=== PATIENT | female | born 2000 | race Caucasian/White ===

== ENCOUNTER 2025-01-22 14:10 | Emergency (ER) | payer OTHER ==
--- OUTSIDE RECORDS SUMMARY | 2025-01-22 14:13 | XMS REPORT | Continuity of Care Document ---
Author Name Unknown Address [address] [facility] [address] [place] [address] [facility] Address [address] [facility] [address] [place] [address] Care Team Providers Care Blade Operator Name Role Phone ANDREA CARROLL Attending Clinician Unavailable LUIS ENRIQUE TODD Attending Clinician Unavailab DENIS Adrian V. Attending Clinician Unavailable DENIS ROJAS V. Admitting Clinician Unavailable Encounters Start Date/Time End Date/Time Encounter Type Admission Type Attending Clinicians Care Facility Care Department Encounter ID Source 2022-08-01 09:00:00 Inpatient ANDREA ROLDAN [facility] [id number] [facility] 2019-05-13 09:45:00 2019-05-13 09:45:00 Outpatient LUIS ENRIQUE GRIER [facility] [id number] [facility] 2000 11:27:00 2000 11:27:00 Outpatient DENIS EM [facility] [id number] [facility] 2000 13:28:00 2000 13:43:00 Inpatient DENIS EM [facility] [id number] [facility] 2000 17:31:00 2000 11:59:00 Inpatient DENIS ROCK ELLIS [facility] [id number] [facility]
--- NOTE | 2025-01-22 14:17 | EDPHYS ---
Physician Documentation [facility] Name: Kim Newman Age: 24 yrs Sex: Female : 2000 Arrival Date: 01/22/2025 Time: 14:10 Bed Treatment Private MD: ED Physician Melvin Schaffer HPI: 01/22 20:24 This 24 yrs old Female presents to ER via Ambulatory with complaints of dr5 Abdominal Pain. 20:26 Patient is a 24 old female with no past medical history coming in with lower abdominal dr5 cramping has been going on for the past 2 weeks. Patient reports that she had mild spotting that started today. Patient is G1, P0. Patient had quant hCG completed yesterday and it was 350. Patient would like to have repeat hCG today as she has appointment tomorrow with her FRAME TABLE OPERATOR HELPER for further management.. FRAME TABLE OPERATOR HELPER: 14:27 Verified me1 Historical: - Allergies: 14:18 No Known Allergies; ll1 - PMHx: 14:18 None; ll1 - PSHx: 14:18 None; ll1 - Immunization history:: Adult Immunizations up to date. - Infectious Disease History:: Denies. - Social history:: Smoking status: Patient denies any tobacco usage or history of. ROS: 20:26 Constitutional: as per hpi dr5 Exam: 20:26 Constitutional: This is a well developed, well nourished patient who is awake, alert, dr5 and in no acute distress. Head/Face: Normocephalic, atraumatic. Eyes: Pupils equal round and reactive to light, extra-ocular motions intact. Lids and lashes normal. Conjunctiva and sclera are non-icteric and not injected. Cornea within normal limits. Periorbital areas with no swelling, redness, or edema. Neck: Trachea midline, no thyromegaly or masses palpated, and no cervical lymphadenopathy. Supple, full range of motion without nuchal rigidity, or vertebral point tenderness. No Meningismus. Chest/axilla: Normal chest wall appearance and motion. Nontender with no deformity. No lesions are appreciated. Cardiovascular: Regular rate and rhythm with a normal S1 and S2. Normal PMI, no JVD. No pulse deficits. Respiratory: Lungs have equal breath sounds bilaterally, clear to auscultation. No rales, rhonchi or wheezes noted. No increased work of breathing, no retractions or nasal flaring. Back: No spinal tenderness. No costovertebral tenderness. Full range of motion. Skin: Warm, dry with normal turgor. Normal color with no rashes, no lesions, and no evidence of cellulitis. MS/ Extremity: Pulses equal, no cyanosis. Neurovascular intact. Full, normal range of motion. Neuro: Awake and alert, GCS 15, oriented to person, place, time, and situation. Cranial nerves II-XII grossly intact. Motor strength 5/5 in all extremities. Sensory grossly intact. Cerebellar exam normal. Normal gait. Vital Signs: 14:17 BP 110 / 82; Pulse 102; Resp 17; Temp 97.8; Pulse Ox 100% on R/A; Weight 52.16 kg; ll1 Height 5 ft. 4 in. ; Pain 0/10; 14:17 Body Mass Index 19.74 (52.16 kg, 162.56 cm) ll1 14:17 Pain Scale: Adult ll1 MDM: 14:12 Medical Screening Exam initiated fredy 20:26 Differential diagnosis: Ectopic , non-specific abd pain, Threatened dr5 miscarriage. Data reviewed: vital signs, nurses notes, lab test result(s), Beta HCs. Consideration of Admission/Observation Escalation of care including admission/observation considered. Escalation considered if patient having large amounts of vaginal bleeding. I considered the following discharge prescriptions or medication management in the emergency department I discussed and recommended Over The Counter medications. Test considered but Not performed: Ultrasound Ultrasound considered but patient is too early. Care significantly affected by the following Social Determinants of Health: Poor access to healthcare and/or lack of insurance, Poor access to transportation, Problems related to employment. Counseling: I had a detailed discussion with the patient and/or guardian regarding the historical points, exam findings, and any diagnostic results supporting the discharge/admit diagnosis, the presence of at least one elevated blood pressure reading (>120/80) during this emergency department visit, lab results, the need for outpatient follow up, for definitive care, a family practitioner, an OB/Gyne specialist, to return to the emergency department if symptoms worsen or persist or if there are any questions or concerns that arise at home. Special discussion: I discussed with the patient/guardian in detail that at this point there is no indication for admission to the hospital. It is understood, however, that if the symptoms persist or worsen the patient needs to return immediately for re-evaluation. Based on the history and exam findings, there is no indication for further emergent testing or inpatient evaluation. I discussed with the patient/guardian the need to see the OB Gyne specialist for further evaluation of the symptoms. ED course: Patient was informed of hCG that is higher than yesterday. Recommended patient follow-up tomorrow as scheduled. Patient verbalized understanding. Patient does not want ultrasound during visit. All questions are. Strict ER precautions given.. 01/22 14:13 Order name: HCG-Quantitative dr5 Administered Medications: No medications were administered Disposition Summary: 01/22/25 14:16 Discharge Ordered Notes: Location: Home dr5 Condition: Stable dr5 Diagnosis - Abnormal uterine and vaginal bleeding, unspecified dr5 Followup: dr5 - With: Emergency Department - When: As needed - Reason: Followup: dr5 - With: Private Physician - When: 1 - 2 days - Reason: Recheck today's complaints, Continuance of care, Re-evaluation by your physician Discharge Instructions: - Discharge Summary Sheet dr5 - Vaginal Bleeding During , First Trimester dr5 Forms: - Medication Reconciliation Form dr5 - Patient Portal Instructions dr5 - Leadership Thank You Letter dr5 Addendum: 01/24/2025 07:27 Co-signature as Attending Physician, Melvin Schaffer MD I agree with the assessment and c ty plan of care. Signatures: Dispatcher [employer] Melvin Linder MD MD cha Lewis, Lynsay, RN RN ll1 Clemencia Lara RN RN me1 Kamar Vera, PAGE MAKEUP SYSTEM OPERATOR-C PAGE MAKEUP SYSTEM OPERATOR-Cdr5
--- NOTE | 2025-01-22 14:17 | ER ---
Nurse's Notes [facility] Name: Kim Newman Age: 24 yrs Sex: Female : 2000 Arrival Date: 01/22/2025 Time: 14:10 Bed Treatment Private MD: Diagnosis: Abnormal uterine and vaginal bleeding, unspecified Presentation: 01/22 14:12 Chief complaint: Patient states: Found out she was last week. Started having ll1 slight cramping and spotting just MEDICAL CLERK. G1, P0. Coronavirus screen: Client denies travel out of the [place] in the last 14 days. At this time, the client does not indicate any symptoms associated with coronavirus-19. Ebola Screen: Patient denies travel to an Ebola-affected area in the 21 days before illness onset. Initial Sepsis Screen: Does the patient meet any 2 criteria? No. Patient's initial sepsis screen is negative. Does the patient have a suspected source of infection? No. Patient's initial sepsis screen is negative. Risk Assessment: Do you want to hurt yourself or someone else? Patient reports no desire to harm self or others. Onset of symptoms was January 22, 2025. 14:12 Method Of Arrival: Ambulatory ll1 14:12 Acuity: ERYN 4 ll1 Triage Assessment: 14:12 General: Appears uncomfortable, Behavior is cooperative, appropriate for age, anxious, ll1 crying. Pain: Denies pain. GI: Reports cramping. : Reports spotting. BUILD ENGINEER: 14:27 Verified me1 Historical: - Allergies: 14:18 No Known Allergies; ll1 - PMHx: 14:18 None; ll1 - PSHx: 14:18 None; ll1 - Immunization history:: Adult Immunizations up to date. - Infectious Disease History:: Denies. - Social history:: Smoking status: Patient denies any tobacco usage or history of. Screenin:23 [facility] ED Fall Risk Assessment (Adult) History of falling in the last 3 months, me1 including since admission No falls in past 3 months (0 pts) Confusion or Disorientation No (0 pts) Intoxicated or Sedated No (0 pts) Impaired Gait No (0 pts) Mobility Assist Device Used No (0 pt) Altered Elimination No (0 pt) Score/Fall Risk Level 0 - 2 = Low Risk Maintained a safe environment, Provided non-skid footwear, Hourly rounding (assess needs \T\ fall precautionary measures) done. Abuse screen: Denies threats or abuse. Nutritional screening: No deficits noted. Tuberculosis screening: No symptoms or risk factors identified. Assessment: 14:23 General: Appears in no apparent distress. well groomed, well developed, well nourished, me1 Behavior is calm, cooperative, appropriate for age, Reports Found out she was last week. Started having slight cramping and spotting just MEDICAL CLERK. G1, P0. Pain: Complains of pain in right lower quadrant and left lower quadrant Pain does not radiate. Pain currently is 1 out of 10 on a pain scale. Quality of pain is described as crampy, Pain began 30 min ago. Is continuous. Neuro: Level of Consciousness is awake, alert, obeys commands, Oriented to person, place, time, situation, Appropriate for age. Cardiovascular: Patient's skin is warm and dry. Respiratory: Airway is patent Respiratory effort is even, unlabored, Respiratory pattern is regular, symmetrical. GI: No signs and/or symptoms were reported involving the gastrointestinal system. Bowel sounds present X 4 quads. Abd is soft X 4 quads. : Reports vaginal bleeding that is spotty, since a few minutes before arrival. EENT: No signs and/or symptoms were reported regarding the EENT system. Derm: Skin is intact, is healthy with good turgor, Skin is normal. Musculoskeletal: Circulation, motion, and sensation intact. Range of motion: intact in all extremities. Vital Signs: 14:17 BP 110 / 82; Pulse 102; Resp 17; Temp 97.8; Pulse Ox 100% on R/A; Weight 52.16 kg; ll1 Height 5 ft. 4 in. ; Pain 0/10; 14:17 Body Mass Index 19.74 (52.16 kg, 162.56 cm) ll1 14:17 Pain Scale: Adult ll1 ED Course: 14:11 Patient arrived in ED. im 14:11 Clemencia Lara, KAROL is Primary Nurse. me1 14:11 Arm band placed on Patient placed in an exam room, on a stretcher. ll1 14:12 Melvin Schaffer MD is Attending Physician. fredy 14:12 Melvin Boucher PA-C is PHCP. cp 14:12 Triage completed. ll1 14:13 Kamar Vera FNP-C is PHCP. dr5 14:23 Patient has correct armband on for positive identification. Provided Education on: POC. me1 Verbalized understanding.. 14:23 HCG-Quantitative Sent. me1 14:23 No provider procedures requiring assistance completed. Patient did not have IV access me1 during this emergency room visit. 15:29 patient HCG 450 now. Make sure you follow-up tomorrow as scheduled, verbalized ll1 understanding. No questions at this time. Administered Medications: No medications were administered Medication: 14:23 VIS not applicable for this client. me1 Outcome: 14:16 Discharge ordered by . dr5 14:27 Discharged to home ambulatory, with friend, me1 14:27 Condition: stable 14:27 Discharge instructions given to patient, Instructed on discharge instructions, follow up and referral plans. Demonstrated understanding of instructions, follow-up care, Kamar Vera BEHAVIORAL INSTRUCTOR to call with results 14:28 Patient left the ED. me1 Signatures: Melvin Schaffer MD MD cha Page, Corey, PA-C PA-C Rissa Conway RN RN ll1 Barbara Vincent Michelle, RN RN me1 Kamar Vera FNP-C TRAINING TECHNICIAN-Cdr5 Corrections: (The following items were deleted from the chart) 14:14 14:12 Chief complaint: Patient states: Found out she was last week. Started me1 having slight cramping and spotting just MEDICAL CLERK. G1, P0 ll1 14:18 14:12 Chief complaint: Patient states: Found out she was last week. Started ll1 having slight cramping and spotting just MEDICAL CLERK. G1, P0 me1 14:23 14:12 Chief complaint: Patient states: Found out she was last week. Started me1 having slight cramping and spotting just MEDICAL CLERK. G1, P0 ll1
[2025-01-22 14:42] VITALS: BP 110/82; TEMP 97.8; O2SAT 100
== END 2025-01-22 14:28 | disposition home or self-care (01) ==
LOC: ER 14:10
DX: N93.9 Abnormal uterine and vaginal bleeding, unspecified (principal)
CPT/HCPCS: 36415; 84702; 99283

== ENCOUNTER 2025-01-23 14:05 | Emergency (ER) | payer OTHER ==
--- OUTSIDE RECORDS SUMMARY | 2025-01-23 14:10 | XMS REPORT | Continuity of Care Document ---
Author Name Unknown Address [address] [facility] [address] [place] [address] [facility] Address [address] [facility] [address] [facility] [address] [place] [address] Care Team Providers Care Package Line Operator Name Role Phone KARIN ROJAS Primary Care Physician UnavailANDREA Newberry Attending Clinician Unavailable DR KARIN ROJAS Attending Clinician Unavailabl e [phone] Attending Clinician Unavailable Clemencia Cote MD Attending Clinician [phone] DR DREAD GARDUNO Attending Clinician Unavailabl e [phone] Attending Clinician Unavailable DR LUIS ANTONIO CHINCHILLA Attending Clinician Unavailab Mohamud RN, Daniella Attending Clinician Unavailab Coty ROBERSON, Tess Attending Clinician UnavailCLEMENCIA Araya M.D. Attending Clinician Unavail able Adrianne Attending Clinician Unavailable LUIS ENRIQUE TODD Attending Clinician UnavailDENIS Hassan V. Attending Clinician Unavailable DR KARIN ROJAS Admitting Clinician UnavailDR DREAD Gr Admitting Clinician UnavailDR LUIS ANTONIO Maldonado Admitting Clinician Unavailab Cotton Admitting Clinician Unavailable DENIS ROJAS V. Admitting Clinician Unavailable Payers Payer Name Policy Type Policy Number Effective Date Expirati on Date Source [facility] [id number] [facility] [id number] 2019 00:00:00 0450 [id number] 2022 00:00:00 [place] [id number] 2019 00:00:00 Problems Condition Name Condition Details Condition Category Status Onset Date Resolution Date Last Treatment Date Treating Clinician Comments Source Screening for STD (sexually transmitte d disease) Screening for STD (sexually transmitte d disease) Problem Active [facility] Fat[facility] Fatigue Problem Active [facility] Gardnerell a vaginitis Gardnerell a vaginitis Problem Active [facility] Well female exam with routine gynecologi min exam Well female exam with routine gynecologi min exam Problem Active [facility] Pelvic pain in female Pelvic pain in female Problem Active [facility] UTI (urinary tract infection) UTI (urinary tract infection) Problem Active [facility] test negative test negative Problem Active [facility] control counseling control counseling Problem Active [facility] Feared condition not demonstrat ed Feared condition not demonstrat ed Problem Active [facility] Allergies, Adverse Reactions, Alerts Allergy Name Allergy Type Status Severity Reaction(s) Onset Date Inactive Date Treating Clinician Comments Source No Known Allergie s MA Active UNKNOWN [facility] Family History Family Member Diagnosis Comments Start Date Stop Date Sourc e Grandmother Family history of hypertension [facility] Social History Social Habit Start Date Stop Date Quantity Comments Source Sexual orientation 2022-12-12 10:01:59 Heterosexual (finding) [facility] History SDOH Alcohol Std Drinks [facility] History SDOH Alcohol Binge [facility] History SDOH Alcohol Comment [facility] Exposure to SARS-CoV-2 (event) Not sure [facility] Alcoholic beverage intake 2024-01-16 00:00:00 2024-01-16 00:00:00 Ex-drinker (finding) [facility] History of Social function 2024-01-16 00:00:00 2024-01-16 00:00:00 [facility] Tobacco use and exposure 2022-12-14 00:00:00 2022-12-14 00:00:00 Smokeless tobacco non-user [facility] Alcohol intake 2022-12-14 00:00:00 2022-12-14 00:00:00 Ex-drinker (finding) [facility] History SDOH Alcohol Frequency 2020-12-20 00:00:00 2020-12-20 00:00:00 1 [facility] Sex assigned at 2000 00:00:00 2000 00:00:00 F [facility] Smoking Status Start Date Stop Date Source Tobacco smoking consumption unknown [facility] Never smoked tobacco [facility] Medications Ordered Medication Name Filled Medication Name Start Date Stop Date Current Medication? Ordering Clinician Indication Dosage Frequency Signature (SIG) Comments Components Source medroxyPROG ESTERone (Provera) 10 MG tablet 12-14 00:00: 00 01-14 04:59 :00 No [id number] 10mg QD Take 1 tablet (10 mg total) by mouth 1 (one) time each day. [facility] clomiPHENE (Clomid) 50 MG tablet 12-14 00:00: 00 12-20 04:59 :00 No [id number] 50mg QD Take 1 tablet (50 mg total) by mouth 1 (one) time each day for 5 days. On days 3-7 of cycle [facility] Lo Loestrin Fe 1 MG-10 MCG / 10 MCG tablet 3 00:00: 00 12-14 00:00 :00 No [id number] 1{tbl} QD Take 1 tablet by mouth 1 (one) time each day. Skip inactive tablets [facility] Lo Loestrin Fe 1 MG-10 MCG / 10 MCG tablet 12-28 00:00: 00 12-29 04:59 :00 No [id number] 1{tbl} QD Take 1 tablet by mouth 1 (one) time each day. [facility] Lo Loestrin Fe 1 MG-10 MCG / 10 MCG tablet 2020-04 0 00:00: 00 02-02 04:59 :00 No [id number] 1{tbl} QD Take 1 tablet by mouth 1 (one) time each day. [facility] Lo Loestrin Fe 1 MG-10 MCG / 10 MCG Oral Tablet Lo Loestrin Fe 1 MG-10 MCG / 10 MCG Oral Tablet 1 00:00: 00 Yes CLEMENCIA COTE M.D. TAKE ONE (1) TABLET(S) BY MOUTH ONE TIME DAILY. [facility] Hibiclens 4 % topical liquid Apply 1 application every day by topical route for 7 days. Hibiclens 4 % topical liquid Apply 1 application every day by topical route for 7 days. No 1applic ation(s ) Q1D Hibiclens 4 % topical liquid Apply 1 applicatio n every day by topical route for 7 days. [facility] mupirocin 2 % topical ointment mupirocin 2 % topical ointment No mupirocin 2 % topical ointment [facility] sulfamethox azole 200 mg-trimetho prim 40 mg/5 mL oral suspension Take 20 mL every 12 hours by oral route for 10 days. sulfamethox azole 200 mg-trimetho prim 40 mg/5 mL oral suspension Take 20 mL every 12 hours by oral route for 10 days. No 20mL Q12H sulfametho xazole 200 mg-trimeth oprim 40 mg/5 mL oral suspension Take 20 mL every 12 hours by oral route for 10 days. [facility] sulfamethox azole 800 mg-trimetho prim 160 mg tablet sulfamethox azole 800 mg-trimetho prim 160 mg tablet No sulfametho xazole 800 mg-trimeth oprim 160 mg tablet [facility] Vital Signs Vital Name Observation Time Observation Value Comments S ource BMI 2024-01-16 17:17:00 21.80 kg/m2 [facility] Systolic blood pressure 2024-01-16 17:17:00 112 mm[Hg] [facility] Diastolic blood pressure 2024-01-16 17:17:00 74 mm[Hg] [facility] Heart rate 2024-01-16 17:17:00 99 /min [facility] Body height 2024-01-16 17:17:00 162.6 cm [facility] Body weight 2024-01-16 17:17:00 57.607 kg [facility] Systolic blood pressure 2022-12-14 14:20:00 118 mm[Hg] [facility] Diastolic blood pressure 2022-12-14 14:20:00 82 mm[Hg] [facility] Heart rate 2022-12-14 14:20:00 101 /min [facility] Body height 2022-12-14 14:20:00 162.6 cm [facility] Body weight 2022-12-14 14:20:00 65.318 kg [facility] BMI 2022-12-14 14:20:00 24.72 kg/m2 [facility] Systolic blood pressure 2022-02-13 21:26:00 117 mm[Hg] [facility] Diastolic blood pressure 2022-02-13 21:26:00 80 mm[Hg] [facility] Heart rate 2022-02-13 21:26:00 101 /min [facility] Body height 2022-02-13 21:26:00 162.6 cm [facility] Body weight 2022-02-13 21:26:00 63.504 kg [facility] BMI 2022-02-13 21:26:00 24.03 kg/m2 [facility] Height 2022-02-13 09:19:00 167.64 CM Weight 2022-02-13 09:19:00 63.5 KG Systolic blood pressure 2020-12-20 20:42:00 122 mm[Hg] [facility] Diastolic blood pressure 2020-12-20 20:42:00 79 mm[Hg] [facility] Body temperature 2020-12-20 20:42:00 36.56 Kayla [facility] Body height 2020-12-20 20:42:00 162.6 cm [facility] Body weight 2020-12-20 20:42:00 49.624 kg [facility] BMI 2020-12-20 20:42:00 18.78 kg/m2 [facility] BP Diastolic 2019-05-12 00:00:00 65 mm[Hg] [facility] Height 2019-05-12 00:00:00 64 [in_i] [facility] BMI (Body Mass Index) 2019-05-12 00:00:00 18.3 kg/m2 [facility] BP Systolic 2019-05-12 00:00:00 109 mm[Hg] [facility] Body Weight 2019-05-12 00:00:00 1708.8 [oz_av] [facility] Body mass index (BMI) [Ratio] 2020-08-09 10:32:00 20.08 kg/m2 [facility] Body temperature 2020-08-09 10:32:00 97.1 [degF] Method: Temporal [facility] Heart Rate 2020-08-09 10:32:00 89 /min [facility] Systolic blood pressure 2020-08-09 10:32:00 118 mm[Hg] Location: LUE; Position: Sitting [facility] Diastolic blood pressure 2020-08-09 10:32:00 69 mm[Hg] Location: LUE; Position: Sitting [facility] Body height 2020-08-09 10:32:00 64 [in_us] [facility] Weight 2020-08-09 10:32:00 117 [lb_av] [facility] Systolic blood pressure 2020-04-19 15:47:00 121 mm[Hg] Location: LUE; Position: Sitting [facility] Diastolic blood pressure 2020-04-19 15:47:00 86 mm[Hg] Location: LUE; Position: Sitting [facility] Body height 2020-04-19 15:47:00 64 [in_us] [facility] Weight 2020-04-19 15:47:00 114 [lb_av] [facility] Body mass index (BMI) [Ratio] 2020-04-19 15:47:00 19.57 kg/m2 [facility] Body temperature 2020-04-19 15:47:00 97.6 [degF] Method: Temporal [facility] Heart Rate 2020-04-19 15:47:00 111 /min [facility] Systolic blood pressure 2020-02-23 11:56:00 91 mm[Hg] Location: LUE; Position: Sitting [facility] Diastolic blood pressure 2020-02-23 11:56:00 67 mm[Hg] Location: LUE; Position: Sitting [facility] Body height 2020-02-23 11:56:00 64 [in_us] [facility] Weight 2020-02-23 11:56:00 110 [lb_av] [facility] Body mass index (BMI) [Ratio] 2020-02-23 11:56:00 18.88 kg/m2 [facility] Body temperature 2020-02-23 11:56:00 97.2 [degF] Method: Temporal [facility] Heart Rate 2020-02-23 11:56:00 104 /min [facility] BP Systolic 2018-08-22 11:07:00 96 mm[Hg] Location: RUE; Position: Sitting [facility] BP Diastolic 2018-08-22 11:07:00 62 mm[Hg] Location: RUE; Position: Sitting [facility] Height 2018-08-22 11:07:00 64 [in_us] [facility] Weight 2018-08-22 11:07:00 99.375 [lb_av] [facility] Body Mass Index Calculated 2018-08-22 11:07:00 17.06 kg/m2 [facility] Heart Rate 2018-08-22 11:07:00 73 /min [facility] BP Systolic 2017-07-25 11:09:00 125 mm[Hg] Location: RUE; Position: Sitting [facility] BP Diastolic 2017-07-25 11:09:00 81 mm[Hg] Location: RUE; Position: Sitting [facility] Height 2017-07-25 11:09:00 64 [in_us] [facility] Weight 2017-07-25 11:09:00 102 [lb_av] [facility] Body Mass Index Calculated 2017-07-25 11:09:00 17.51 kg/m2 [facility] Heart Rate 2017-07-25 11:09:00 102 /min [facility] Procedures Procedure Date / Time Performed Performing Clinicia n Source [QL] CBC (INCLUDES DIFF/PLT) 2020-08-09 00:00:00 [facility] [QL] CMP W/EGFR 2020-08-09 00:00:00 [facility] [QL] HEMOGLOBIN A1c 2020-08-09 00:00:00 [facility] [QL] T4, FREE 2020-08-09 00:00:00 [facility] [QL] TSH, 3RD GENERATION 2020-08-09 00:00:00 [facility] [Q] HEPATITIS B SURFACE ANTIGEN W/REFL CONFIRM 2020-08-09 00:00:00 [facility] [Q] HIV-1/2 Antigen and Antibodies, Fourth Generation, with Reflexes 2020-08-09 00:00:00 [facility] [Q] RPR (MONITOR) W/REFL TITER 2020-08-09 00:00:00 [facility] [QL] HEPATITIS C ANTIBODY 2020-08-09 00:00:00 [facility] [QL] HSV 1/2 IGG, HERPESELECT TYPE SPECIFIC AB 2020-08-09 00:00:00 [facility] [QL] HCG, TOTAL, QN 2020-08-09 00:00:00 [facility] [Q] CHLAMYDIA/N. GONORRHOEAE RNA, TMA 2020-08-09 00:00:00 [facility] [QL] BV/ VAGINITIS PANEL DNA PROBE AFFIRM 2020-08-09 00:00:00 [facility] [QL] CULTURE, URINE, ROUTINE 2020-08-09 00:00:00 [facility] [QL] CULTURE, URINE, ROUTINE 2020-04-19 00:00:00 [facility] [QL] BV/ VAGINITIS PANEL DNA PROBE AFFIRM 2020-04-19 00:00:00 [facility] [Q] CHLAMYDIA/N. GONORRHOEAE RNA, TMA 2020-04-19 00:00:00 [facility] [QL] BV/ VAGINITIS PANEL DNA PROBE AFFIRM 2020-02-23 00:00:00 [facility] [Q] CHLAMYDIA/N. GONORRHOEAE RNA, TMA 2020-02-23 00:00:00 [facility] [QL] CULTURE, URINE, ROUTINE 2020-02-23 00:00:00 [facility] US Pelvis with Pelvis Transvaginal [id number] 2020-02-23 00:00:00 [facility] . [facility] - Affirm VPIII (BV Panel) 2018-08-22 00:00:00 [facility] . [facility] - GC/Chlamydia 2018-08-22 00:00:00 [facility] US Pelvis with Pelvis Transvaginal [id number] 2018-08-22 00:00:00 [facility] [QLH] CBC (INCLUDES DIFF/PLT) 2017-07-25 00:00:00 [facility] [QLH] TSH, 3RD GENERATION 2017-07-25 00:00:00 [facility] [QLH] T4, FREE 2017-07-25 00:00:00 [facility] [QL] HCG, TOTAL, QN 2017-07-25 00:00:00 [facility] [LH] Herpes Simplex Virus 1 and 2 Antibody IgG 2017-07-25 00:00:00 [facility] [LH] Herpes Simplex Virus 1 and 2 Antibody IgM 2017-07-25 00:00:00 [facility] [H] Drug Screen. 2017-07-25 00:00:00 [facility] [QH] HIV AB, HIV 1/2, EIA, WITH REFLEXES 2017-07-25 00:00:00 [facility] [QLH] RPR 2017-07-25 00:00:00 [facility] [QLH] HEPATITIS C ANTIBODY 2017-07-25 00:00:00 [facility] [QH] HEPATITIS B SURFACE ANTIGEN W/REFL CONFIRM 2017-07-25 00:00:00 [facility] . [facility] - GC/Chlamydia 2017-07-25 00:00:00 [facility] . [facility] - Affirm VPIII (BV Panel) 2017-07-25 00:00:00 [facility] Plan of Care Planned Activity Planned Date Details Comments Source Diagnostic Test Pending 2019-05-12 00:00:00 culture, wound [code = culture, wound] [facility] Instructions [facility] Encounters Start Date/Time End Date/Time Encounter Type Admission Type Attending Clinicians Care Facility Care Department Encounter ID Source 2022-08-01 09:00:00 Inpatient ANDREA ROLDAN [facility] [id number] [facility] 2022-04-06 12:51:47 Outpatient KARIN ROJAS [id number] [facility] [id number] [facility] 2022-03-06 15:41:39 [facility] [id number] [facility] 2022-02-13 12:25:41 [facility] [id number] [facility] 2022-02-07 13:10:45 [facility] [id number] [facility] 2024-01-16 12:30:00 2024-01-16 12:40:04 Office Visit Clemencia Cote [facility] [address] AND [place]OM[place] [id number] [facility] 2023-12-19 11:30:00 2023-12-19 11:30:00 Outpatient CLEMENCIA COTE [facility] [id number] [facility] 2023-03-08 14:15:00 2023-03-08 14:15:00 Outpatient [facility]ENCIA C[facility] [id number] [facility] 2023-02-14 09:29:00 2023-02-14 09:30:00 Outpatient KARIN CAAL [id number] [facility] [place] [id number] [facility] 2023-01-14 07:29:00 2023-01-14 08:01:00 Outpatient DREAD OLMOS [id number] [place] [id number] [facility] 2022-12-14 09:30:00 2022-12-14 09:37:21 Office Visit Clemencia Cote [facility] [address] AND [place] [id number] [facility] 2022-04-05 12:53:00 2022-04-05 00:00:00 [facility] [id number] [facility] [id number] [facility] 2022-03-17 08:30:00 2022-03-17 08:30:00 [facility] [id number] [facility] 2022-03-13 14:15:00 2022-03-13 14:15:00 Out[facility]EL [facility] [id number] [facility] 2022-03-06 14:45:00 2022-03-06 15:41:35 [facility] [id number] [facility] 2022-02-13 15:30:00 2022-02-13 15:49:46 Office Visit Clemencia Cote [facility] [address] [place] [id number] [facility] 2022-02-13 09:15:00 2022-02-13 10:32:00 Outpatient LUIS ANTONIO [facility] [id number] [facility] 2021-02-01 00:00:00 2021-02-01 00:00:00 Orders Only Daniella Tony Rebecca [facility] [address] [place] [id number] [facility] 2020-12-20 15:35:09 2020-12-20 16:07:03 Office Visit Clemencia Cote [facility] [address] [place] [id number] [facility] 2020-12-20 00:00:00 2020-12-20 00:00:00 Telephone Tess Sol Alicia [facility] [address] [place] [id number] [facility] 2020-08-09 10:45:00 2020-08-09 10:45:00 Appointmen t; CLEMENCIA COTE M.D. WONG, MICHELLE, M.D. [facility] [id number] [facility] 2020-04-19 15:30:00 2020-04-19 15:30:00 Appointmen t; CLEMENCIA COTE M.D. WONG, MICHELLE, M.D. [facility] [id number] [facility] 2020-02-23 11:30:00 2020-02-23 11:30:00 Appointmen t; CLEMENCIA COTE M.D. WONG, MICHELLE, M.D. [facility] [id number] [facility] 2019-05-13 09:45:00 2019-05-13 09:45:00 Outpatient LUIS ENRIQUE GRIER [facility] [id number] [facility] 2019-05-12 00:00:00 2019-05-12 00:00:00 Luis Enrique Todd, EXTENSION COURSE COUNSELOR: [address], [place] [address] , Ph. [facility] [id number] [facility] 2018-08-22 11:00:00 2018-08-22 11:00:00 Appointmen t; CLEMENCIA COTE M.D. WONG, MICHELLE, M.D. [facility] [id number] [facility] 2017-07-25 11:00:00 2017-07-25 11:00:00 CLEMENCIA Oseguera M.D. CLEMENCIA COTE M.D. [facility] [id number] [facility] 2000 11:27:00 2000 11:27:00 Outpatient DENIS EM [facility] [id number] [facility] 2000 13:28:00 2000 13:43:00 Inpatient DENIS EM [facility] [id number] [facility] 2000 17:31:00 2000 11:59:00 [facility] [id number] [facility] Results Test Description Test Time Test Comments Results Result Co mments Source URINALYSIS W/O MICROSCOPICOW2022-02-13 10:02:00* Test Item Value Reference Range Interpretation Comme nts COLOR (test code = COLU) Yellow YELLOW CLARITY (test code = CLA) Clear CLEAR GLUCOSE UR (test code = UA GLUCOSE) Negative NEGATIVE BILI UR (test code = BILE) Negative NEGATIVE KETONES UR (test code = KYLAH) Negative NEGATIVE SP GRAVITY (test code = SPGR) 1.020 1.005-1.030 PH UR (test code = PH) 7.0 4.5-8.0 PROTEIN UR (test code = PU) Negative NEGATIVE NITRITE UR (test code = NITRITE) Negative NEGATIVE UROBIL UR (test code = GUROQ) 1.0 E.U./dL UROBIL UR (test code = GUROQC) UROBILINOGEN REFERENCE RANGE 0.2 - 1.0 EU/dL BLOOD UR (test code = UA BLOOD) 3+ NEGATIVE A LEUK ES UR (test code = LEUK) Negative NEGATIVE [Q] HIV-1/2 Antigen and Antibodies, Fourth Generation, with [id number] 10:56:00* Test Item Value Reference Range Interpretation Comme nts HIV AG/AB, 4TH GEN; Normal (test code = 26828-7) NON-REACTIVE NON-REACTIVE N HIV-1 antigen an d HIV-1/HIV-2 antibodies were notdetected. There is no laboratory evidence of HIVinfection. PLEASE NOTE: This information has been disclosed toyou from records whose confidentiality may beprotected by state law. If your state requires suchprotection, then the state law prohibits you frommaking any further disclosure of the informationwithout the specific written consent of the personto whom it pertains, or as otherwise permitted by law.A general authorization for the release of medical orother information is NOT sufficient for this purpose. For additional information please refer tohttp://education.Greekdrop/faq/PUN553(Thi s link is being provided for informational/educational purposes only.) The performance of this assay has not been clinicallyvalidated in patients less than 2 years old. [facility][QL] CMP [id number] 10:56:00* Test Item Value Reference Range Interpretation Comme nts GLUCOSE; Normal (test code = 1547-9) 93 mg/dl 65-99 N Fasting referenc e interval UREA NITROGEN (BUN) (test code = UREA NITROGEN (BUN)) 9 mg/dl 7-20 N CREATININE (test code = CREATININE) 0.71 mg/dl 0.50-1.00 N eGFR NON-AFR. TRINIDADIAN (test code = eGFR NON-AFR. TRINIDADIAN) 123 {ML/MIN/1.7} See_Comment N [Automated message] The system which generated this result transmitted reference range: > OR = 60. The reference range was not used to interpret this result as normal/abnormal. eGFR (test code = eGFR ) 143 {ML/MIN/1.7} See_Comment N [Automated message] The system which generated this result transmitted reference range: > OR = 60. The reference range was not used to interpret this result as normal/abnormal. BUN/CREATININE RATIO (test code = BUN/CREATININE RATIO) NOT APPLICABLE 6-22 SODIUM (test code = SODIUM) 139 mmol/L 135-146 N POTASSIUM (test code = POTASSIUM) 4.2 mmol/L 3.8-5.1 N CHLORIDE (test code = CHLORIDE) 106 mmol/L 98-110 N CARBON DIOXIDE (test code = CARBON DIOXIDE) 25 mmol/L 20-32 N CALCIUM (test code = CALCIUM) 9.4 mg/dl 8.9-10.4 N PROTEIN, TOTAL (test code = PROTEIN, TOTAL) 6.9 g/dl 6.3-8.2 N ALBUMIN (test code = ALBUMIN) 4.5 g/dl 3.6-5.1 N GLOBULIN (test code = GLOBULIN) 2.4 {G/DL CALC} 2.0-3.8 N ALBUMIN/GLOBULIN RATIO (test code = ALBUMIN/GLOBULIN RATIO) 1.9 {CALC} 1.0-2.5 N BILIRUBIN, TOTAL; Normal (test code = 71307-2) 0.5 mg/dl 0.2-1.1 N ALKALINE PHOSPHATASE (test code = ALKALINE PHOSPHATASE) 48 u/l 36-128 N AST; Normal (test code = 1916-6) 16 u/l 12-32 N ALT; Normal (test code = 1742-6) 8 u/l 5-32 N [facility][QL] CBC (INCLUDES DIFF/PLT)2020-08-09 10:56:00* Test Item Value Reference Range Interpretation Comme nts WHITE BLOOD CELL COUNT (test code = WHITE BLOOD CELL COUNT) 4.5 {Thousand/u} 3.8-10.8 N RED BLOOD CELL COUNT (test code = RED BLOOD CELL COUNT) 4.06 {Million/uL} 3.80-5.10 N HEMOGLOBIN; Normal (test code = 35269-1) 12.0 g/dl 11.7-15.5 N HEMATOCRIT; Normal (test code = 4544-3) 35.5 % 35.0-45.0 N MCV; Normal (test code = 787-2) 87.4 fL 80.0-100.0 N MCHC; Normal (test code = 92924-0) 33.8 g/dl 32.0-36.0 N RDW; Normal (test code = 788-0) 12.0 % 11.0-15.0 N PLATELET COUNT; Normal (test code = 777-3) 255 {Thousand/u} 140-400 N MPV; Normal (test code = 20436-3) 10.2 fL 7.5-12.5 N ABSOLUTE NEUTROPHILS (test code = ABSOLUTE NEUTROPHILS) 2048 {cells/uL} 6871-3078 N ABSOLUTE LYMPHOCYTES (test code = ABSOLUTE LYMPHOCYTES) 1967 {cells/uL} 850-3900 N ABSOLUTE MONOCYTES (test code = ABSOLUTE MONOCYTES) 338 {cells/uL} 200-950 N ABSOLUTE EOSINOPHILS (test code = ABSOLUTE EOSINOPHILS) 108 {cells/uL} 15-500 N ABSOLUTE BASOPHILS (test code = ABSOLUTE BASOPHILS) 41 {cells/uL} 0-200 N NEUTROPHILS (test code = NEUTROPHILS) 45.5 % N LYMPHOCYTES (test code = LYMPHOCYTES) 43.7 % N MONOCYTES; Normal (test code = 24005-5) 7.5 % N EOSINOPHILS; Normal (test code = 56585-8) 2.4 % N BASOPHILS; Normal (test code = 65011-6) 0.9 % N [facility][Q] HEPATITIS B SURFACE ANTIGEN W/REFL [id number] 10:56:00* Test Item Value Reference Range Interpretation Comme nts HEPATITIS B SURFACE ANTIGEN; Normal (test code = 5195-3) NON-REACTIVE NON-REACTIVE N [facility][QL] HEPATITIS C [id number] 10:56:00* Test Item Value Reference Range Interpretation Comme nts HEPATITIS C ANTIBODY; Normal (test code = 80149-9) NON-REACTIVE NON-REACTIVE N SIGNAL TO CUT-OFF (test code = SIGNAL TO CUT-OFF) 0.02 <1.00 N HCV antibody was non-reactive. There is no laboratory evidence of HCV infection. In most cases, no further action is required. However,if recent HCV exposure is suspected, a test for HCV RNA(test code 66203) is suggested. For additional information please refer [email or web address].Aptidata/fa q/[email or web address](This link is being provided for informational/educati onal purposes only.) [facility] Physicians[QL] HSV 1/2 IGG, HERPESELECT TYPE SPECIFIC [id number] 10:56:00* Test Item Value Reference Range Interpretation Comme nts HSV 1 IGG TYPE SPECIFIC AB (test code = HSV 1 IGG TYPE SPECIFIC AB) <0.90 N HSV 2 IGG TYPE SPECIFIC AB (test code = HSV 2 IGG TYPE SPECIFIC AB) <0.90 N Index Interpr etation ----- <0.90 Negative 0.90-1.09 Equivocal >1.09 Positive This assay utilizes recombinant type-specific antigensto differentiate HSV-1 from HSV-2 infections. Apositive result cannot distinguish between recent andpast infection. If recent HSV infection is suspectedbut the results are negative or equivocal, the assayshould be repeated in 4-6 weeks. The performancecharacteristics of the assay have not been establishedfor pediatric populations, immunocompromised patients,or screening. [facility][QL] T4, [id number] 10:56:00* Test Item Value Reference Range Interpretation Comme nts T4, FREE (test code = T4, FREE) 0.9 ng/dl 0.8-1.4 N [facility]] TSH, 3RD [id number] 10:56:00* Test Item Value Reference Range Interpretation Comme nts TSH; Normal (test code = 40618-0) 0.85 {MIU/L} N Reference Range 1-19 Years 0.50-4.30 Ranges First trimester 0.26-2.66 Second trimester 0.55-2.73 Third trimester 0.43-2.91 [facility][QL] HCG, TOTAL, [id number] 10:56:00* Test Item Value Reference Range Interpretation Comme nts HCG, TOTAL, QN (test code = HCG, TOTAL, QN) <3 N Reference RangeN on or premenopausal <5Postmenopausal <10 Values from different assay methods may vary.The use of this assay to monitor or to diagnose patients with cancer or any condition unrelatedto has not been cleared or approved bythe FDA or the tile shader of the assay. [facility][QL] HEMOGLOBIN [id number] 10:56:00* Test Item Value Reference Range Interpretation Comme nts HEMOGLOBIN A1c; Normal (test code = 4548-4) 5.0 {% of total} <5.7 N For the purpose of screening for the presence ofdiabetes: <5.7% Consistent with the absence of diabetes5.7-6.4% Consistent with increased risk for diabetes (prediabetes)> or =6.5% Consistent with diabetes This assay result is consistent with a decreased riskof diabetes. Currently, no consensus exists regarding use ofhemoglobin A1c for diagnosis of diabetes in children. According to [place] [employer] (ADA)guidelines, hemoglobin A1c <7.0% represents optimalcontrol in non- diabetic patients. Differentmetrics may apply to specific patient populations. Standards of Medical Care in Diabetes(ADA). [facility][Q] RPR (MONITOR) W/REFL [id number] 10:56:00* Test Item Value Reference Range Interpretation Comme nts RPR (MONITOR) W/REFL TITER (REFL) (test code = RPR (MONITOR) W/REFL TITER (REFL)) NON-REACTIVE NON-REACTIVE N [facility][QL] BV/ VAGINITIS PANEL DNA PROBE [id number] 00:00:00* Test Item Value Reference Range Interpretation Comme nts TRICHOMONAS: (test code = TRICHOMONAS:) NOT DETECTED NOT DETECTED N GARDNERELLA: (test code = GARDNERELLA:) NOT DETECTED NOT DETECTED N MAHI: (test code = MAHI:) NOT DETECTED NOT DETECTED N [facility][Q] CHLAMYDIA/N. GONORRHOEAE RNA, [id number] 00:00:00* Test Item Value Reference Range Interpretation Comme nts CHLAMYDIA TRACHOMATIS RNA, TMA, UROGENITAL; Normal (test code = 20238-7) NOT DETECTED NOT DETECTED N NEISSERIA GONORRHOEAE RNA, TMA, UROGENITAL; Normal (test code = 67343-3) NOT DETECTED NOT DETECTED N See Comment (test code = See Comment) See Comment The analytic al performance characteristics of thisassay, when used to test SurePath(TM) specimens have beendetermined by [employer]. The modifications havenot been cleared or approved by the FDA. This assay hasbeen validated pursuant to the CLIA regulations and isused for clinical purposes. For additional information, please refer tohttps://education.Ombud.Aptidata/faq /SEN240(This link is being provided for information/educationa l purposes only.) [facility][QL] CULTURE, URINE, [id number] 00:00:00* Test Item Value Reference Range Interpretation Comme nts CULTURE (test code = CULTURE) See Comment CULTURE, URINE, ROUTINE Micro Number: [id number] Test Status: Final Specimen Source: URINE Specimen Quality: Adequate Result: 10,000-49,000 CFU/mL of Non-uropathogenic Gram positive organism May represent colonizers from external and internal genitalia. No further testing (including susceptibility) will be performed. [facility][O] Urine Test (in office)2020-04-19 16:28:00* Test Item Value Reference Range Interpretation Comme nts Test, Urine; Margaret l (test code = 2106-3) negative N [facility][QL] BV/ VAGINITIS PANEL DNA PROBE [id number] 00:00:00* Test Item Value Reference Range Interpretation Comme nts TRICHOMONAS: (test code = TRICHOMONAS:) NOT DETECTED NOT DETECTED N GARDNERELLA: (test code = GARDNERELLA:) NOT DETECTED NOT DETECTED N MAHI: (test code = MAHI:) NOT DETECTED NOT DETECTED N [facility][Q] CHLAMYDIA/N. GONORRHOEAE RNA, [id number] 00:00:00* Test Item Value Reference Range Interpretation Comme nts CHLAMYDIA TRACHOMATIS RNA, TMA, UROGENITAL; Normal (test code = 43596-6) NOT DETECTED NOT DETECTED N NEISSERIA GONORRHOEAE RNA, TMA, UROGENITAL; Normal (test code = 98029-2) NOT DETECTED NOT DETECTED N See Comment (test code = See Comment) See Comment The analytic al performance characteristics of thisassay, when used to test SurePath(TM) specimens have beendetermined by [employer]. The modifications havenot been cleared or approved by the FDA. This assay hasbeen validated pursuant to the CLIA regulations and isused for clinical purposes. For additional information, please refer tohttps://education.Motionloft/faq /UFU956(This link is being provided for information/educationa l purposes only.) [facility]] CULTURE, URINE, [id number] 00:00:00* Test Item Value Reference Range Interpretation Comme nts CULTURE (test code = CULTURE) See Comment A CULTURE, URINE, ROUTINE Micro Number: [id number] Test Status: Final Specimen Source: URINE Specimen Quality: Adequate Result: Greater than 100,000 CFU/mL of Klebsiella pneumoniae K.pneumoniae INT AKOSUA AMOX/CLAVULANATE S 8 AMPICILLIN R 16 AMP/SULBACTAM S 4 CEFAZOLIN NR <=4 2 CEFEPIME S <=1 CEFTRIAXONE S <=1 CIPROFLOXACIN S <=0.25 GENTAMICIN S <=1 IMIPENEM S <=0.25 LEVOFLOXACIN S <=0.12 NITROFURANTOIN S <=16 PIP/TAZOBACTAM S <=4 TOBRAMYCIN S <=1 TRIMETHOPRIM/SULFA S <=20S=Susceptible I=Intermediate R=Resistant * = Not TestedNR = Not Reported NN = See Therapy CommentsTHERAPY COMMENTS Note 1: For infections other than uncomplicated UTI caused by E. coli, K. pneumoniae or P. mirabilis: Cefazolin is resistant if AKOSUA > or = 8 mcg/mL. (Distinguishing susceptible versus intermediate for isolates with AKOSUA < or = 4 mcg/mL requires additional testing.) Note 2: For uncomplicated UTI caused by E. coli, K. pneumoniae or P. mirabilis: Cefazolin is susceptible if AKOSUA <32 mcg/mL and predicts susceptible to the oral agents cefaclor, cefdinir, cefpodoxime, cefprozil, cefuroxime, cephalexin and loracarbef. [facility] Pelvis with Pelvis Transvaginal [id number] 08:51:00 PROCEDURE INFORMATION:Exam: US Pelvis Complete, Transabdominal and US Pelvis, TransvaginalExam dateand time: 03/05/2020 8:55 AMAge: 19 years oldClinical indication: Pelvic and perineal pain; Additional info: /pelvic painr10.2TECHNIQUE:Imaging protocol: Real-time transabdominal and transvaginal pelvic ultrasound(complete) with image documentation. Transvaginal imaging was used for betterevaluation of the endometrium, adnexa, and/or cervix.COMPARISON:No relevant prior studies available.FINDINGS:Transabdominal images of the pelvis show the urinary bladder is unremarkable.The anteverted uterus measures 7.4 x 2.9 x 4.2 cm in size. Endometrialechostripe thickness is 10 mm. The right ovary measures 3.7 x 1.8 x 2.8 cm. Theleft ovary measures 3.5 x 2.2 x 2.7 cm. Follicular appearing physiologic cystsare noted at both ovaries. Doppler vascular flow at both ovaries. The transvaginal exam shows normal uterine parenchymal echotexture. Theendometrial stripe measures 7 mm in thickness. No uterine mass or fibroid. The right ovary measures 3.7 x 1.8 x 2.8 cm. The left ovary measures 3.5 x 2.2 x 2.7 cm. There is normal bilateral ovarian blood flow on doppler evaluation. Follicularappearing physiologic cysts are noted at both ovaries. There is no adnexal mass. There is no free fluid in the cul-de-sac.IMPRESSION:1. Unremarkable pelvic ultrasound.2. Normal endometrial echo stripe thickness for premenopausal female.3. No ovarian torsion.4. Uterus and ovaries have a normal sonographic appearance.Adolph Renae MD On 03/05/2020 10:09:13; [id number]--[id number] by: Adolph Renae MDDictated Date/time: 03/05/20 10:10Electronically Signed by: Adolph Renae MD 03/05/2010:10FINAL REPORTUT [facility][QL] BV/ VAGINITIS PANEL DNA PROBE [id number] 00:00:00* Test Item Value Reference Range Interpretation Comme nts TRICHOMONAS: (test code = TRICHOMONAS:) NOT DETECTED NOT DETECTED N GARDNERELLA: (test code = GARDNERELLA:) DETECTED NOT DETECTED A Increased levels of G. vaginalis may not be significantin the absence of signs and symptoms of bacterialvaginosis. MAHI: (test code = MAHI:) NOT DETECTED NOT DETECTED N [facility][Q] CHLAMYDIA/N. GONORRHOEAE RNA, [id number] 00:00:00* Test Item Value Reference Range Interpretation Comme nts CHLAMYDIA TRACHOMATIS RNA, TMA, UROGENITAL; Normal (test code = 44537-5) NOT DETECTED NOT DETECTED N NEISSERIA GONORRHOEAE RNA, TMA, UROGENITAL; Normal (test code = 94068-5) NOT DETECTED NOT DETECTED N See Comment (test code = See Comment) See Comment The analytic al performance characteristics of thisassay, when used to test SurePath(TM) specimens have beendetermined by [employer]. The modifications havenot been cleared or approved by the FDA. This assay hasbeen validated pursuant to the CLIA regulations and isused for clinical purposes. For additional information, please refer tohttps://education.Motionloft/faq /OAP079(This link is being provided for information/educationa l purposes only.) [facility][QL] CULTURE, URINE, [id number] 00:00:00* Test Item Value Reference Range Interpretation Comme nts CULTURE (test code = CULTURE) See Comment A CULTURE, URINE, ROUTINE Micro Number: [id number] Test Status: Final Specimen Source: URINE Specimen Quality: Adequate Result: 10,000-49,000 CFU/mL of Group B Streptococcus isolated Beta-hemolytic streptococci are predictably susceptible to Penicillin and other beta-lactams. Susceptibility testing not routinely performed. Please contact the laboratory within 3 days if susceptibility testing is desired. Comment: Erythromycin and clindamycin are not recommended for treatment of urinary tract infections, but clindamycin may be useful for treatment in penicillin allergic patients for rectovaginal colonization or for intrapartum prophylaxis if indicated. Any amount of group B Streptococcus in urine specimens obtained from females is a marker of genital tract colonization. If this patient is , please refer to ACOG guidelines for appropriate screening and management of women. Result: Growth of mixed lazarus was isolated, suggesting probable contamination. No further testing will be performed. If clinically indicated, recollection using a method to minimize contamination, with prompt transfer to Urine Culture Transport Tube, is recommended. [facility]. [facility] - Affirm VPIII (BV Panel)2018-08-22 00:00:00* Test Item Value Reference Range Interpretation Comme nts Affirm VPIII (BV Panel) REPO RT (test code = Affirm VPIII (BV Panel) REPORT) See Comment [facility]] CBC (INCLUDES DIFF/PLT)2017-07-25 12:32:01* Test Item Value Reference Range Interpretation Comme nts WBC (test code = 6690-2) 5.8 {K/CMM} 3.7-10.4 RBC (test code = 789-8) 4.23 {M/CMM} 4.20-5.40 Hgb; Below Low Threshold (te st code = 718-7) 11.7 g/dl 12.0-16.0 Hct (test code = 91442-0) 36.5 % 36.0-48.0 MCV (test code = 787-2) 86.4 fL 80.0-98.0 MCH (test code = 785-6) 27.7 pg 27.0-31.0 MCHC (test code = 786-4) 32.1 g/dl 32.0-36.0 RDW (test code = 788-0) 12.8 % 11.5-14.5 Platelet (test code = 35078-2) 326 {K/CMM} 133-450 Mean Platelet Volume (test c ode = 71741-3) 8.3 fL 7.4-10.4 [facility]] [id number] 12:32:01* Test Item Value Reference Range Interpretation Comme nts Segmented Neutrophils (test code = 61388-4) 56.5 % 45.0-75.0 Monocytes (test code = 64338-9) 7.6 % 2.0-12.0 Lymphocytes (test code = 15109-2) 32.7 % 20.0-40.0 Eosinophils (test code = 39965-1) 2.1 % 0.0-4.0 Basophils; Above High Thresh old (test code = 706-2) 1.1 % 0.0-1.0 Segs-Bands # (test code = 47121-6) 3.3 {K/CMM} 1.5-8.1 Lymphocytes # (test code = 77007-5) 1.9 {K/CMM} 1.0-5.5 Monocytes # (test code = 03910-5) 0.4 {K/CMM} 0.0-0.8 Eosinophils # (test code = 43396-3) 0.1 {K/CMM} 0.0-0.5 Basophils # (test code = 12937-9) 0.1 {K/CMM} 0.0-0.2 [facility]] T4, [id number] 12:32:01* Test Item Value Reference Range Interpretation Comme nts T4 Free (test code = 3024-7) 0.98 ng/dl 0.76-1.46 [facility][QL] TSH, 3RD [id number] 12:32:01* Test Item Value Reference Range Interpretation Comme nts TSH (test code = 58392-3) 0.517 {uIU/ml} 0.360-3.740 [facility]] HCG, TOTAL, [id number] 12:32:01* Test Item Value Reference Range Interpretation Comme nts hCG Total (test code = 50815-1) <1 Reference Range: Male 0 - 5 mIU/mL Non- Female 0 - 5 mIU/mLNote: hCG result should be used in conjunction with symptoms, resultsof other tests, and clinical impressions.Weeks of Gestation hCG (mIU/mL) 3 6 - 71 4 10-750 5 217 - 7,138 6 158 -31,795 7 3,697 - 163,563 8 32,065 - 149,571 9 63,803 - 151,410 10 46,506 - 186,977 11 27,832 - 210,612 14 13,950 - 62,530 15 12,039 - 70,971 16 9,040 - 56,451 17 8,175 - 55,868 18 8,099 - 58,176 [facility]] [id number] 12:32:01* Test Item Value Reference Range Interpretation Comme [facility] RPR (test code = 10794-8) Non Reactive Non Reactive [facility][] HEPATITIS B SURFACE ANTIGEN W/REFL [id number] 12:32:01 * Test Item Value Reference Range Interpretation Comme [facility] Hepatitis B Surface Antigen (test code = 5195-3) Negative Negative [facility]] HEPATITIS C [id number] 12:32:01* Test Item Value Reference Range Interpretation Comme [facility] Hepatitis C Antibody (test c ode = 49696-4) Negative [facility][] HIV AB, HIV 1/2, EIA, WITH [id number] 12:32:01* Test Item Value Reference Range Interpretation Comme [facility] HIV Ag/Ab 4th Gen (test code = 70329-0) Negative Negative [facility][] Herpes Simplex Virus 1 and 2 Antibody [id number] 12:32:01* Test Item Value Reference Range Interpretation Comme [facility] Herpes Simplex Virus 1 IgG (test code = 5206-8) <0.2 <=0.8 Antibody Index ( AI) Results Interpretation -------- ------- 0.0-0.8 Negative No detectable IgG Antibody.0.9-1.0 Equivocal Repeat testing suggested in 10-14 days.>=1.10 Positive Indicates presence of detectable IgG Antibody. Herpes Simplex Virus 2 IgG (test code = 09380-8) <0.2 <=0.8 Antibody Index ( AI) Results Interpretation -------- ------- 0.0-0.8 Negative No detectable IgG Antibody.0.9-1.0 Equivocal Repeat testing suggested in 10-14 days.>=1.10 Positive Indicates presence of detectable IgG Antibody. [facility][H] Herpes Simplex Virus 1/2 Antibody [id number] 12:32:01* Test Item Value Reference Range Interpretation Comme nts HSV 1 IgM (test code = HSV 1 IgM) <1:10 <1:10 HSV 2 IgM (test code = HSV 2 IgM) <1:10 <1:10 HSV 1 and HSV 2 share many cross-reacting antigens.Elevated titers to both HSV 1 and HSV 2 may representcrossreactive HSV antibodies rather than exposure to bothHSV 1 and HSV 2. Results for this test are for researchpurposes only by the assay's tile shader. The performancecharacteristics of this product have not been established.Results should not be used as a diagnostic procedurewithout confirmation of the diagnosis by another medicallyestablished diagnostic product or procedure.Performed At: [facility] [address] [id number] Kyle L MD Ph:[phone] [facility][H] Drug Screen.2017-07-25 12:32:01* Test Item Value Reference Range Interpretation Comme nts Amph Scr (test code = Amph Scr) Negative Negative Shanice Scr (test code = Shanice Scr) Negative Negative Benzodiaz Scr (test code = Benzodiaz Scr) Negative Negative Cannab Scr (test code = Cannab Scr) Negative Negative Cocaine Scr (test code = Cocaine Scr) Negative Negative Methadone Scr (test code = Methadone Scr) Negative Negative Opiate Scr (test code = Opiate Scr) Negative Negative PCP Scr (test code = PCP Scr) Negative Negative Cutoff Values (test code = Cutoff Values) See Note Negative Screen Cut-Off:Cannabinoid and Phencyclidine: 1 ng/g6-Acetylmorphine: 20 ng/mlAll other drugs: 20 ng/gConfirmation Cut-Off:Cannabinoid and Phencyclidine: 5 ng/g6-Acetylmorphine: 5 ng/mlAll other drugs: 50 ng/gTest performed by [facility] [id number] [place], [place] [address]. [facility] - Affirm VPIII (BV Panel)2017-07-25 00:00:00* Test Item Value Reference Range Interpretation Comme nts Affirm VPIII (BV Panel) REPO RT (test code = Affirm VPIII (BV Panel) REPORT) See Comment [facility]
[2025-01-23 15:15] LABS: Anion Gap 7.8 mEq/L (5.0-15.0); BUN Blood Urea Nitrogen 10.0 mg/dL (7-18); Glucose Level 81.0 mg/dL (74-106); HCG, Quantitative 729.0 mIU/mL (1-3); Potassium 3.8 mEq/L (3.5-5.1)
[2025-01-23 15:23] LABS: Absolute Lymphocytes (CBC) 1.9 K/uL (0.7-4.9); Hematocrit 35.2 % (36.0-45.0); Hemoglobin 12.0 g/dL (12.0-15.0); MCH 29.3 pg (27.0-35.0); MCHC 34.0 g/dL (32.0-36.0); MCV 86.1 fL (80-100); MPV 8.3 fL (7.6-11.3); Nucleated RBC Absolute Count 0.0 (0-0); Nucleated Red Blood Cells % 0.2 % (0-0); RBC Red Blood Cell Count 4.09 M/uL (3.86-4.86); White Blood Count 5.90 thou/uL (4.3-10.9)
--- NOTE | 2025-01-23 16:06 | EDPHYS ---
Physician Documentation [facility] Name: Kim Newman Age: 24 yrs Sex: Female : 2000 Arrival Date: 01/23/2025 Time: 14:05 Bed 11 Private MD: ED Physician Melvin Schaffer HPI: 01/23 20:28 This 24 yrs old Female presents to ER via Ambulatory with complaints of dr5 Vaginal Bleeding, + Preg <12wks. 20:28 Patient is a 24-year-old female with no past medical history coming in for hCG recheck. dr5 Patient was here yesterday for hCG administer appointment at [facility] this morning. Patient denies vaginal bleeding or abdominal cramps at this time.. E LEARNING MANAGER: 14:19 1, Living 0, LMP 12/26/2024, unknown iw 20:28 1, unknown dr5 Historical: - Allergies: 14:18 No Known Allergies; iw - Home Meds: 14:18 None [Active]; iw - PMHx: 14:18 None; iw - PSHx: 14:18 None; iw - Immunization history:: Adult Immunizations. - Infectious Disease History:: Denies. - Social history:: Smoking status: . ROS: 20:28 Constitutional: as per hpi dr5 Exam: 20:28 Constitutional: This is a well developed, well nourished patient who is awake, alert, dr5 and in no acute distress. Head/Face: Normocephalic, atraumatic. Eyes: Pupils equal round and reactive to light, extra-ocular motions intact. Lids and lashes normal. Conjunctiva and sclera are non-icteric and not injected. Cornea within normal limits. Periorbital areas with no swelling, redness, or edema. Neck: Trachea midline, no thyromegaly or masses palpated, and no cervical lymphadenopathy. Supple, full range of motion without nuchal rigidity, or vertebral point tenderness. No Meningismus. Chest/axilla: Normal chest wall appearance and motion. Nontender with no deformity. No lesions are appreciated. Cardiovascular: Regular rate and rhythm with a normal S1 and S2. Normal PMI, no JVD. No pulse deficits. Respiratory: Lungs have equal breath sounds bilaterally, clear to auscultation. No rales, rhonchi or wheezes noted. No increased work of breathing, no retractions or nasal flaring. Back: No spinal tenderness. No costovertebral tenderness. Full range of motion. Skin: Warm, dry with normal turgor. Normal color with no rashes, no lesions, and no evidence of cellulitis. MS/ Extremity: Pulses equal, no cyanosis. Neurovascular intact. Full, normal range of motion. Neuro: Awake and alert, GCS 15, oriented to person, place, time, and situation. Cranial nerves II-XII grossly intact. Motor strength 5/5 in all extremities. Sensory grossly intact. Cerebellar exam normal. Normal gait. Vital Signs: 14:17 BP 108 / 72; Pulse 108; Resp 16; Pulse Ox 100% on R/A; Weight 52.16 kg; Height 5 ft. 4 iw in. ; 14:17 Body Mass Index 19.74 (52.16 kg, 162.56 cm) iw MDM: 14:09 Medical Screening Exam initiated dr5 20:29 Differential diagnosis: threatened Ab, inevitable Ab, complete Ab, ectopic . dr5 Data reviewed: vital signs, nurses notes, lab test result(s), Beta HCG: Type and screen. Patient O+. I considered the following discharge prescriptions or medication management in the emergency department. Care significantly affected by the following Social Determinants of Health: Poor access to healthcare and/or lack of insurance, Poor access to transportation, Problems related to employment. Counseling: I had a detailed discussion with the patient and/or guardian regarding the historical points, exam findings, and any diagnostic results supporting the discharge/admit diagnosis, the presence of at least one elevated blood pressure reading (>120/80) during this emergency department visit, lab results, the need for outpatient follow up, for definitive care, a family practitioner, an OB/Gyne specialist, to return to the emergency department if symptoms worsen or persist or if there are any questions or concerns that arise at home. Special discussion: I discussed with the patient/guardian in detail that at this point there is no indication for admission to the hospital. It is understood, however, that if the symptoms persist or worsen the patient needs to return immediately for re-evaluation. Based on the history and exam findings, there is no indication for further emergent testing or inpatient evaluation. I discussed with the patient/guardian the need to see the OB Gyne specialist for further evaluation of the symptoms. ED course: Patient is hCG is rising appropriately. Patient is Rh+. No bleeding at this time. Recommend patient follow-up with E LEARNING MANAGER for further management. All question answered. Strict ER precautions.. 01/23 14:09 Order name: Basic Metabolic Panel; Complete Time: 15:25 dr5 01/23 14:09 Order name: CBC with Diff; Complete Time: 15:31 dr5 01/23 14:09 Order name: Quantitative Hcg; Complete Time: 15:25 dr5 01/23 14:27 Order name: Type And Screen; Complete Time: 20:29 dr5 01/23 14:09 Order name: IV Saline Lock; Complete Time: 14:45 dr5 01/23 14:09 Order name: Labs collected and sent; Complete Time: 14:45 dr5 01/23 14: Order name: NPO; Complete Time: 14:45 dr5 Administered Medications: No medications were administered Disposition: 01/24 07:55 Co-signature as Attending Physician, Melvin Schaffer MD I agree with the assessment and fredy plan of care. Disposition Summary: 01/23/25 16:06 Discharge Ordered Notes: Location: Home dr5 Condition: Stable dr5 Diagnosis - Abnormal uterine and vaginal bleeding, unspecified dr5 Followup: dr5 - With: Emergency Department - When: As needed - Reason: Worsening of condition Followup: dr5 - With: Private Physician - When: 1 - 2 days - Reason: Recheck today's complaints, Continuance of care, Re-evaluation by your physician Discharge Instructions: - Discharge Summary Sheet dr5 - First Trimester of dr5 Forms: - Work release form dr5 - Medication Reconciliation Form dr5 - Antibiotic Education dr5 - Prescription Opioid Use dr5 - Patient Portal Instructions dr5 - Leadership Thank You Letter dr5 Signatures: Dispatcher [employer] Melvin Linder MD MD cha Williams, Irene, Kamar Powell RN, ACTIVITIES SPECIALIST-C ACTIVITIES SPECIALIST-Cdr5 Corrections: (The following items were deleted from the chart) 01/23 14:34 14:27 RH TYPING+BB.LAB.BRZ ordered. CHRISTINAAZ SARAY
--- NOTE | 2025-01-23 16:06 | ER ---
Nurse's Notes [facility] Name: Kim Newman Age: 24 yrs Sex: Female : 2000 Arrival Date: 01/23/2025 Time: 14:05 Bed 11 Private MD: Diagnosis: Abnormal uterine and vaginal bleeding, unspecified Presentation: 01/23 14:17 Chief complaint: Chief complaint: Patient states: started bleeding yesterday and needs iw her labs redrawn. 14:17 Coronavirus screen: At this time, the client does not indicate any symptoms associated iw with coronavirus-19. Ebola Screen: No symptoms or risks identified at this time. Initial Sepsis Screen: Does the patient meet any 2 criteria? No. Patient's initial sepsis screen is negative. Does the patient have a suspected source of infection? No. Patient's initial sepsis screen is negative. Risk Assessment: Do you want to hurt yourself or someone else? Patient reports no desire to harm self or others. Onset of symptoms was January 22, 2025. 14:17 Method Of Arrival: Ambulatory iw 14:17 Acuity: ERYN 3 iw CONTRACT NEGOTIATOR: 14:19 1, Living 0, LMP 12/26/2024, unknown iw 20:28 1, unknown dr5 Historical: - Allergies: 14:18 No Known Allergies; iw - Home Meds: 14:18 None [Active]; iw - PMHx: 14:18 None; iw - PSHx: 14:18 None; iw - Immunization history:: Adult Immunizations. - Infectious Disease History:: Denies. - Social history:: Smoking status: . Assessment: 16:06 Reassessment: Patient is alert, oriented x 3, equal unlabored respirations, skin aa5 warm/dry/pink. Pt states "I really need to go now, I am late for work". Pt requesting to speak to provider, provider notified and at bedside. . 16:08 Reassessment: Patient is alert, oriented x 3, equal unlabored respirations, skin aa5 warm/dry/pink. Vital Signs: 14:17 BP 108 / 72; Pulse 108; Resp 16; Pulse Ox 100% on R/A; Weight 52.16 kg; Height 5 ft. 4 iw in. ; 14:17 Body Mass Index 19.74 (52.16 kg, 162.56 cm) ED Course: 14:07 Patient arrived in ED. mr 14:09 [facility] 14:09 Melvin Schaffer MD is Attending Physician. dr5 14:18 Triage completed. iw 14:18 Arm band placed on. iw 14:45 Initial lab(s) drawn, by me, sent to lab. Inserted saline lock: 20 gauge in right rk3 antecubital area, using aseptic technique. Blood collected. Flushed with 10 mL NS. 16:06 intact, bleeding controlled, No redness/swelling at site. Pressure dressing applied, Pt aa5 pulled out IV. Administered Medications: No medications were administered Outcome: 16:06 Discharge ordered by . dr5 16:08 Discharged to home ambulatory, aa5 16:08 Condition: good 16:08 Discharge instructions given to patient, Instructed on discharge instructions, follow up and referral plans. Demonstrated understanding of instructions, follow-up care, 16:09 Patient left the ED. aa5 Signatures: Jessica Quach, Hector Reg mr Jessica Marrufo, RN RN iw Cleo Bill RN RN aa5 Kamar Vera FNP-C [id number] Mino Leyva rk3 Corrections: (The following items were deleted from the chart) 14:18 14:17 Chief complaint: iw iw 14:20 14:17 Acuity: ERYN 4 iw iw
[2025-01-23 19:43] VITALS: BP 108/72; O2SAT 100
== END 2025-01-23 16:09 | disposition home or self-care (01) ==
LOC: ER 14:05
DX: N93.9 Abnormal uterine and vaginal bleeding, unspecified (principal)
CPT/HCPCS: 36415; 80048; 84702; 85025; 86850; 86900; 86901; 99283